=== PATIENT | female | born 1985 | race African-American/Black ===

== ENCOUNTER 2021-05-09 12:06 | Emergency (ER) | payer MEDICARE, MEDICAID ==
[~2021-05-09] VITALS: Ht 165.1 cm; Wt 90.0 kg
[2021-05-09] MEDS ORDERED: ONDANSETRON HCL 4MG/2ML INJ IV ONE (12:30)
[2021-05-09] MEDS ORDERED: MAGNESIUM/ALUMINUM HYDROXIDE/SIMETHICONE 30ML UDC PO ONE (12:30)
[2021-05-09] MEDS ORDERED: VISCOUS LIDOCAINE 2% 15 ML UDC MM ONE (12:30)
[2021-05-09] MEDS ORDERED: PANTOPRAZOLE SODIUM 40 MG/VIAL IV ONE (12:30)
[2021-05-09] MEDS ORDERED: SODIUM CHLORIDE 0.9% 1,000 ML IV ONE (12:45)
[2021-05-09 14:02] LABS: HEMATOCRIT. 38.3 % (36.0-48.0); HEMOGLOBIN. 12.2 g/dL (12.0-16.0); MEAN CORPUSCULAR HEMOGLOBIN 26.6 pg (28.0-32.0); MEAN CORPUSCULAR VOLUME 83.2 fL (81.0-99.0); MEAN PLATELET VOLUME 8.1 fl (7.4-10.4); PLATELET 367 x1000/uL (130-400); RED CELL DISTRIBUTION WIDTH 15.1 % (11.6-14.6)
[2021-05-09 14:09] LABS: CHLORIDE 103 mEq/L (98-107)
[2021-05-09 14:13] LABS: PROTHROMBIN TIME 11.1 sec (9.6-11.0)
[2021-05-09 14:18] LABS: HCG SCREEN NEGATIVE
[2021-05-09 14:24] LABS: PLATELET ESTIMATE NORMAL
[2021-05-09] MEDS ORDERED: PROT20 MT (14:46)
[2021-05-09] MEDS ORDERED: ONDA4TAB5 MT (14:46)
[2021-05-09 15:05] VITALS: BP 117/65
[2021-05-09 15:24] LABS: CLARITY URINE CLEAR (CLEAR); COLOR URINE YELLOW (YELLOW); KETONES URINE 3+ (NEGATIVE); LEUKOCYTE ESTERASE URINE TRACE (NEGATIVE); NITRITE URINE NEGATIVE (NEGATIVE); OCCULT BLOOD URINE NEGATIVE (NEGATIVE); PROTEIN URINE NEGATIVE (NEGATIVE); SPECIFIC GRAVITY URINE 1.027 (1.005-1.030)
[2021-05-09 15:35] LABS: *BARBITURATES SCREEN URINE NEGATIVE (NEGATIVE)
[2021-05-09 15:36] LABS: *BENZODIAZEPINES SCREEN URINE NEGATIVE (NEGATIVE); *COCAINE SCREEN URINE NEGATIVE (NEGATIVE); CANNABINOID URINE SCREEN NEGATIVE (NEGATIVE); METHADONE URINE SCREEN NEGATIVE (NEGATIVE); OPIATES URINE SCREEN NEGATIVE (NEGATIVE); PHENCYCLIDINE URINE SCREEN NEGATIVE (NEGATIVE)
[2021-05-09 15:47] LABS: *AMPHETAMINES SCREEN URINE PRESUMTIVE POSITIVE (NEGATIVE)
== END 2021-05-09 15:31 | disposition home or self-care (01) ==
LOC: ER 12:06
DX: R10.11 Right upper quadrant pain (principal); F15.10 Other stimulant abuse, uncomplicated; F16.10 Hallucinogen abuse, uncomplicated; F12.10 Cannabis abuse, uncomplicated
CPT/HCPCS: 36415; 76705; 80053; 80305; 81003; 81025; 83690; 84703; 85025; 85610; 96361; 96374; 96375; 99284; C9113